=== PATIENT | female | born 1990 | race Caucasian/White ===

== ENCOUNTER → 2016-08-31 | Outpatient (CLI) | payer BC ==
[~2016-08-31] MED LIST: IOPAMIDOL (ISOVUE-300) 100 ML BTL ONE
== END ==
LOC: FIMAGING 13:08
PROVIDERS: ATTEND Physician Assistant Medical
DX: E34.9 Endocrine disorder, unspecified (principal)
CPT/HCPCS: Q9967

== ENCOUNTER 2017-01-21 13:53 | Emergency (ER) | payer BC ==
[2017-01-21 14:10] VITALS: O2SAT 96
--- NOTE | 2017-01-21 14:15 | EDPHY ---
H & P Stated Complaint: N/V LONGO SHAKY FEELS DEHYDRATED Time Seen by Provider: 01/21/17 14:14 - Personal History LMP (Females 10-55): 8-14 Days Ago Current Tetanus/Diphtheria Vaccine: No - Medical/Surgical History Hx Asthma: No Hx Chronic Respiratory Disease: No Hx Diabetes: No Hx Cardiac Disease: No Hx Renal Disease: No Hx Cirrhosis: No Hx Alcoholism: No Hx HIV/AIDS: No Hx Splenectomy or Spleen Trauma: No Other PMH: Migraines - Social History Smoking Status: Former smoker Constitutional: Initial Vital Signs Temperature (C) 36.5 C 01/21/17 14:08 Heart Rate 158 H 01/21/17 14:08 Respiratory Rate 20 01/21/17 14:08 Blood Pressure 106/80 01/21/17 14:08 O2 Sat (%) 96 01/21/17 14:08 O2 Delivery Mode Room Air Allergies/Adverse Reactions: No Known Allergies Allergy (Verified 01/21/17 14:07) Home Medications: Medication Instructions Recorded Effexor Xr 01/21/17 Ondansetron Odt [Zofran Odt 4 mg 4 mg PO Q4 PRN #10 tab 01/21/17 (RX)] Medical Decision Making ED Course/Re-evaluation: CHIEF COMPLAINT: Nausea, vomiting, headache HISTORY OF PRESENT ILLNESS: The patient is a 26 y/o female complaining of nausea, vomiting, and headache since this morning. Last night she drank alcohol. She has been dry heaving and has diffuse abdominal pain. She is also seeing spots in her left eye. Denies recent illness, diarrhea, urinary complaints, fever or other pertinent symptoms. REVIEW OF SYSTEMS: A 10 point review of systems was performed and is negative with the exception of the elements mentioned in the history of present illness. PHYSICAL EXAM: HR, BP, O2 Sat, RR. Temp noted General Appearance: Alert, well hydrated, appropriate, and non-toxic appearing. Head: Atraumatic without scalp tenderness or obvious injury Eyes: Pupils equal, round, reactive to light and accommodation, EOMI, no trauma , no injection. Ears: Clear bilaterally, no perforation, normal landmarks Nose: Atraumatic, no rhinorrhea, clear. Throat: Mucus membranes moist. Neck: Supple, nontender, no lymphadenopathy. Respiratory: No retractions, no distress, no wheezes, and no accessory muscle use. Lungs are clear to auscultation bilaterally. Cardiovascular: Regular rate and rhythm, no murmurs, rubs, or gallops. Good capillary refill all extremities. Gastrointestinal: Abdomen is soft, nontender, non-distended, no masses, no rebound, no guarding, no peritoneal signs. Musculoskeletal: Normal active ROM of all extremities, atraumatic. Neurological: Alert, appropriate, and interactive. Non-focal neuro. Skin: No rashes, good turgor, no nodules on palpation. Past medical history: Migraines Past surgical history: Denies Family history: Denies Social history: Friend at bedside, lives in [place], former smoker DIFFERENTIAL DIAGNOSIS: The differential diagnosis for the patient's abdominal pain included but was not limited to ovarian cyst, pelvic inflammatory disease, ovarian torsion, urinary tract infection, ectopic , cholecystitis, and appendicitis. MEDICAL DECISION MAKING: The patient is a 26 y/o female presenting with nausea, vomiting, and a headache since this morning. On exam she has a soft, benign abdomen. 2L IV NS, 30mg IV Toradol, 4mg IV Zofran, and 40mg IV Pepcid administered. 1438: Patient's IStat is normal. 1515: Patient is feeling better, P.O. trial started. Reassessed patient and discussed plan for discharge. Return precautions provided ; patient is comfortable with this plan. - Data Points Laboratory Results: 01/21/17 14:27 POC Hgb 15.6 gm/dL gm/dL (12.6-16.3) POC Hct 46 % % (38-47) POC Sodium 146 mEq/L H mEq/L (134-144) POC Potassium 3.6 mEq/L mEq/L (3.3-5.0) POC Chloride 110 mEq/L mEq/L (97-110) POC BUN 21 mg/dL mg/dL (7-23) POC Creatinine 0.9 mg/dL mg/dL (0.6-1.0) POC Glucose 56 mg/dL L mg/dL (70-100) Medications Given: Discontinued Medications Famotidine (Pepcid) 40 mg IVP EDNOW ONE Stop: 01/21/17 14:28 Last Admin: 01/21/17 14:44 Dose: 40 mg Sodium Chloride (Ns) 1,000 mls @ 0 mls/hr IV EDNOW ONE; Wide Open PRN Reason: Protocol Stop: 01/21/17 14:20 Last Admin: 01/21/17 14:43 Dose: 1,000 mls Sodium Chloride (Ns) 1,000 mls @ 0 mls/hr IV EDNOW ONE; Wide Open PRN Reason: Protocol Stop: 01/21/17 14:20 Last Admin: 01/21/17 14:44 Dose: 1,000 mls Ketorolac Tromethamine (Toradol) 30 mg IVP EDNOW ONE Stop: 01/21/17 14:20 Last Admin: 01/21/17 14:44 Dose: 30 mg Ondansetron HCl (Zofran) 4 mg IVP EDNOW ONE Stop: 01/21/17 14:20 Last Admin: 01/21/17 14:44 Dose: 4 mg Point of Care Test Results: 01/21/17 14:27 POC Sodium 146 H POC Potassium 3.6 POC Chloride 110 POC BUN 21 POC Creatinine 0.9 POC Glucose 56 L Departure - Departure Disposition: Home, Routine, Self-Care Clinical Impression: Gastroenteritis, Dehydration Condition: Good Instructions: Dehydration (ED), Gastroenteritis (ED) Additional Instructions: 1. Increase fluid intake. 2. Take 4mg oral Zofran as needed for nausea. 3. Follow-up with your primary doctor within 72 hours. 4. Return to the Emergency Department for fever, chest pain, shortness of breath , increasing pain, or other worsening of condition. Referrals: JESSICA JEAN-BAPTISTE [Other] - As per Instructions Prescriptions: Ondansetron Odt [Zofran Odt 4 mg (RX)] 4 mg PO Q4 PRN #10 tab PRN Reason: Nausea/Vomiting, Use 1st Report Scribed for: Froylan Whittington Report Scribed by: Rylie Waterman Date of Report: 01/21/17 Time of Report: 14:21
[2017-01-21] MEDS ORDERED: HYDROmorphONE/DILAUDID 1 MG/ML INJ IVP ONE (14:19)
[2017-01-21] MEDS ORDERED: NS 1,000 ML IV ONE ×2 (14:19)
[2017-01-21] MEDS ORDERED: ONDANSETRON 4 MG/2 ML VIAL IVP ONE (14:19)
[2017-01-21] MEDS ORDERED: KETOROLAC 30 MG/1 ML SDV IVP ONE (14:19)
[2017-01-21] MEDS ORDERED: FAMOTIDINE 20 MG/2 ML SDV IVP ONE (14:27)
[2017-01-21 17:40] VITALS: BP 132/80; PULSE 72; RESP 14; TEMP 98.4
== END 2017-01-21 17:40 | disposition home or self-care (01) ==
DX: K52.9 Noninfective gastroenteritis and colitis, unspecified (principal); E86.9 Volume depletion, unspecified; Z87.891 Personal history of nicotine dependence
CPT/HCPCS: 82947-QW; 96374; J1885; J2405

== ENCOUNTER 2017-12-30 11:51 | Emergency (ER) | payer BC, MEDICAID ==
--- NOTE | 2017-12-30 13:40 | EDPHY ---
General Time Seen by Provider: 12/30/17 13:13 Narrative: CHIEF COMPLAINT: I hurt my foot HISTORY OF PRESENT ILLNESS: Patient presents per private vehicle with complaints of hurting her right foot. She says that she was at work last night. She squatted down to grab something from underneath shelf when she felt a sudden onset of pain in the top of the right foot. This is over the 4th and 5th metatarsal. Moderate to severe pain. Difficulty bearing weight on it. Improved at rest. No numbness, tingling or weakness. No pain in the right escalera, right knee or right hip. She has no direct trauma to it. No previous injury to the foot but does have previous right ankle sprains. No other associated complaints or modifying factors. DOMINANT EXTREMITY: Right-hand dominant ESTABLISHED ORTHOPEDIST: None currently REVIEW OF SYSTEMS: Ten systems reviewed and are negative unless otherwise noted in the HPI PAST MEDICAL HISTORY: Unremarkable. Previous orthopedic injuries PAST SURGICAL HISTORY: No recent surgery SOCIAL HISTORY: Nonsmoker. Lives independently. FAMILY HISTORY: Noncontributory EXAMINATION: General Appearance: Alert, no distress Cardiovascular: DP PT pulses symmetric with good signs of perfusion of the right lower extremity. Neurological: A&O, light sensory symmetric, strength symmetric. Normal position the right great toe. Skin: Warm and dry, no rash. No laceration, petechiae or purpura. Extremities: Tenderness of the right midfoot over the 4th and 5th metatarsal. No crepitus or deformity. No tenderness of the right calcaneus with firm palpation. No tenderness of the right proximal fibula. Range of motion lower extremities symmetric. All compartments are soft the right lower extremity. Psychiatric: Mood and affect normal DIFFERENTIAL DIAGNOSES: Including but not limited to sprain, strain, fracture, dislocation, Macario's neuroma MDM: 1:35 p.m. Acute right foot sprain over the area of the peroneus insertion. There is no ecchymosis. No tenderness to the heel. X-ray has been read as negative by radiologist. She will be placed in a Obed boot. Discharged in stable condition weight-bearing as tolerated. Work comp follow-up with orthopedic follow-up as needed. Rest, ice, elevation anti-inflammatories discussed. She is comfortable this plan and discharged home stable condition. SUPERVISION: This patient was independently evaluated without direct involvement of or examination by the attending physician. - Diagnostics Imaging Results: Imaging Impressions Foot X-Ray 12/30/17 11:57 Impression: Negative for fracture. - History Smoking Status: Former smoker - Objective Vital Signs: Initial Vital Signs Temperature (C) 98.1 F 12/30/17 11:54 Heart Rate 89 12/30/17 11:54 Respiratory Rate 16 12/30/17 11:54 Blood Pressure 115/80 12/30/17 11:54 O2 Sat (%) 97 12/30/17 11:54 O2 Delivery Mode Room Air Allergies/Adverse Reactions: No Known Allergies Allergy (Verified 01/21/17 14:07) Home Medications: Medication Instructions Recorded Effexor Xr 01/21/17 Adderall 10 MG (*) 12/30/17 Departure - Departure Disposition: Home, Routine, Self-Care Clinical Impression: Sprain of right foot Qualifiers: Encounter type: initial encounter Qualified Code(s): S93.601A - Unspecified sprain of right foot, initial encounter Condition: Good Instructions: Foot Sprain (ED) Additional Instructions: 1. Obed boot as provided as needed. You are weight-bearing as tolerated 2. Ice and elevate often 3. Ibuprofen 600 mg every 6-8 hours as needed for pain 4. Follow up with [facility] 5. Follow up with orthopedist if needed if pain persists over 7-10 days Referrals: EFREM SCHWARTZ [Other] - As per Instructions Jayden Ram MD [Medical Doctor] - As per Instructions Stand Alone Forms: Work Comp Follow Up
[2017-12-30 13:53] VITALS: BP 121/87
== END 2017-12-30 13:53 | disposition home or self-care (01) ==
DX: S93.601A Unspecified sprain of right foot, initial encounter (principal)
CPT/HCPCS: L4386